=== PATIENT | male | born 1940 | race Caucasian/White ===

== ENCOUNTER 2017-11-15 01:42 | Observation (INO) ==
[2017-11-15] MEDS ORDERED: Nitroglycerin 0.4 MG TAB.SUBL SL PRN (01:51)
--- NOTE | 2017-11-15 01:54 | Emergency Department Note ---
Disposition Clinical Impression: Chest pain Qualifiers: Chest pain type: unspecified Qualified Code(s): R07.9 - Chest pain, unspecified Disposition: Admitted As Inpatient Condition: Undetermined Referrals: Tra Padron M.D. [Primary Care Provider] - Forms: ED Satisfaction Letter Time of Disposition: 03:01 Chest Pain HPI - General Chief Complaint: ED Chest Pain Stated Complaint: Chest Pain Time Seen by Provider: 11/15/17 01:43 Source: patient Mode of arrival: ambulatory Limitations: no limitations Vital Signs Reviewed: Yes Nursing Notes Reviewed: Yes - History of Present Illness HPI Narrative: 76-year-old male with history of CHF, atrial fibrillation, hyperlipidemia, arrives to the emergency department with retrosternal chest pain that woke him up from sleep roughly 2 hours ago. The patient states he took 2 nitroglycerin which she always carries around in his pocket and it did help relieve his pain. The patient denies any other complaints including shortness of breath, unilateral leg swelling, history of DVT or PE, recent surgeries or recent immobilizations. The patient states he has never had TN in the past. The patient's states that the pressure this evening was constant until he took his medication. He called in the 5 or 6 out of 10. Patient is resting comfortably in the room at this time. Severity scale (1-10): 4 - Related Data Home Medications Medication Instructions Recorded Confirmed Acetaminophen w/Cod 300-30 mg 1 each PO Q6HR PRN 01/07/16 05/28/16 [Tylenol w/Codeine #3] Aspirin Enteric Coated [Aspirin EC] 325 mg PO DAILY 01/07/16 05/28/16 Atorvastatin [Lipitor] 10 mg PO HS 01/07/16 05/28/16 Citalopram Hydrobromide 5 mg PO DAILY 01/07/16 05/28/16 [Citalopram HBr] Docusate [Colace] 200 mg PO DAILY 01/07/16 05/28/16 Ferrous Sulfate [Iron Supplement] 325 mg PO DAILY 01/07/16 05/28/16 Isosorbide DInitrate [Isosorbide 5 mg PO TID 01/07/16 05/28/16 Dinitrate] Lisinopril 10 mg PO BID 01/07/16 05/28/16 Nitroglycerin [Nitrostat] 0.4 mg SL AD PRN 01/07/16 05/28/16 Omeprazole [PriLOSEC] 20 mg PO DAILY 01/07/16 05/28/16 diazePAM [Valium] 5 mg PO 3-4XD 01/07/16 05/28/16 Cyanocobalamin (Vitamin B-12) 100 mcg PO DAILY 05/28/16 05/28/16 [Vitamin B-12] Previous Rx's Medication Instructions Recorded OxyCODONE/APAP 5/325 [Percocet 1 each PO Q6HR PRN #15 tablet 05/30/16 5/325 MG] Allergies Allergy/AdvReac Type Severity Reaction Status Date / Time No Known Allergies Allergy Verified 03/12/17 13:18 All systems ED: reviewed and negative except as stated. Constitutional: Denies: fever, chills ENT ED: Denies: congestion Cardiovascular: Reports: chest pain. Denies: palpitations, dyspnea on exertion , edema Respiratory: Denies: cough, dyspnea Gastrointestinal: Denies: abdominal pain, nausea, melena, hematochezia Musculoskeletal: Denies: back pain Integumentary: Denies: rash Neurological: Denies: headache Chest Pain PMH - Past Medical History Medical history: Reports: arthritis, atrial fibrillation, cardiomyopathy, CHF, GERD, hyperlipidemia, hypertension, liver disease Surgical history: Reports: cholecystectomy, other Psychiatric history: Reports: no psych history - Social History Smoking Status: Former smoker Alcohol use: Reports: none Drug use: Reports: none Physical Exam - General Limitations: no limitations General appearance: alert, in no apparent distress - Head Head exam: atraumatic, normocephalic, normal inspection - Eye Eye exam: Present: normal appearance, PERRL, EOMI - ENT ENT exam: normal exam, normal oropharynx, mucous membranes moist - Neck Neck exam: Present: normal inspection, full ROM, trachea midline - Chest Chest inspection: Present: normal inspection, symmetric chest wall rise - Respiratory Respiratory exam: Present: normal lung sounds bilaterally - Cardiovascular Cardiovascular exam: Present: regular rate, normal rhythm, normal heart sounds - Abdominal Exam Abdominal exam: Present: soft, Non-Tender, scar. Absent: tenderness, distention , guarding, rebound, rigidity, pulsatile mass - Extremities Exam Extremities exam: Present: normal inspection, full ROM. Absent: tenderness, pedal edema - Neurological Exam Neurological exam: Present: alert, oriented X3 - Skin Skin exam: Present: warm, dry, intact, normal color Course Vital Signs Temperature 97.9 F 11/15/17 01:44 Pulse Rate 90 11/15/17 01:44 Respiratory Rate 20 11/15/17 01:44 Blood Pressure 182/116 11/15/17 01:44 O2 Sat by Pulse Oximetry 95 11/15/17 01:44 Temperature 97.9 F 11/15/17 01:44 Pulse Rate 76 11/15/17 02:47 Respiratory Rate 18 11/15/17 02:47 Blood Pressure 148/100 11/15/17 02:47 O2 Sat by Pulse Oximetry 97 11/15/17 02:47 Oxygen Delivery Oxygen Delivery Nasal Cannula Chest Pain - MDM Narrative Medical decision making narrative: Workup in the emergency department demonstrates no acute process. The patient' s chest pain is controlled after receiving nitroglycerin. We will admit the patient to the hospital at this time for further workup and care. Patient made aware and agrees to plan. Accepted by Dr. Jim. - Lab Data Lab results reviewed: Yes I reviewed the patient's lab results. Result diagrams: 11/15/17 02:00 11/15/17 02:00 Lab Results 11/15/17 11/15/17 Range/Units 02:00 02:00 WBC 8.5 (4.3-11.1) K/mcL RBC 4.97 (4.19-5.50) M/mcL Hgb 15.4 (12.9-16.9) g/dL Hct 46.4 (37.5-50.1) % MCV 93.4 (83.0-100.0) fL MCH 31.0 (28.0-33.3) pg MCHC 33.2 (31.6-35.5) g/dL RDW 12.8 (11.5-14.5) % Plt Count 142 (140-400) K/mcL MPV 8.9 L (9.4-12.4) fL Immature Gran % 0.4 (0-4) % Seg Neutrophils % 64.3 % Lymphocytes % 24.3 % Monocytes % 8.3 % Eosinophils % 2.2 % Basophils % 0.5 % Neutrophils # 5.4 (1.6-8.9) K/mcL Lymphocytes # 2.1 (0.6-4.6) K/mcL Monocytes # 0.7 (0.0-1.3) K/mcL Eosinophils # 0.2 (0.0-0.6) K/mcL Basophils # 0.0 (0.0-0.2) K/mcL Sodium 138 (136-145) mEq/L Potassium 4.0 (3.5-5.1) mEq/L Chloride 105 (98-107) mEq/L Carbon Dioxide 27 (23-29) mEq/L BUN 16 (8-23) mg/dL Creatinine 0.90 (0.70-1.30) mg/dL Est GFR ( Amer) > 60 (> 60) Est GFR (Non-Af Amer) > 60 (> 60) BUN/Creatinine Ratio 18 (6-26) Glucose 110 H (70-105) mg/dL Calculated Osmolality 288 (280-300) Calcium 8.8 (8.6-10.3) mg/dL Troponin I < 0.03 (< 0.04) ng/mL - Radiology Data Radiology results reviewed: Yes I reviewed the patient's radiology results. Chest X-Ray 11/15/17 01:51 IMPRESSION: No acute process. D/ / Abimael Almazan MD / Abimael Almazan MD Interpreting Provider: Abimael Almazan MD - EKG Data EKG attestation: Yes I reviewed and interpreted this EKG. EKG results narrative: Heart rate [address] No [address] elevation or ST depression noted.
[2017-11-15 02:08] LABS: Basophils % 0.5 %; Eosinophils # 0.2 K/mcL (0.0-0.6); Eosinophils % 2.2 %; Hematocrit 46.4 % (37.5-50.1); Hemoglobin 15.4 g/dL (12.9-16.9); Immature Granulocytes % 0.4 % (0-4); Lymphocytes # 2.1 K/mcL (0.6-4.6); Lymphocytes % 24.3 %; Mean Corpuscular HGB Conc 33.2 g/dL (31.6-35.5); Mean Corpuscular Volume 93.4 fL (83.0-100.0); Mean Platelet Volume 8.9 fL (9.4-12.4); Monocytes # 0.7 K/mcL (0.0-1.3); Monocytes % 8.3 %; Neutrophils # 5.4 K/mcL (1.6-8.9); Platelet Count 142 K/mcL (140-400); Red Blood Count 4.97 M/mcL (4.19-5.50); Red Cell Distribution Width 12.8 % (11.5-14.5); Segmented Neutrophils % 64.3 %
--- NOTE | 2017-11-15 02:30 | Emergency Department Note ---
Disposition Clinical Impression: Chest pain Qualifiers: Chest pain type: unspecified Qualified Code(s): R07.9 - Chest pain, unspecified Disposition: Admitted As Inpatient Forms: ED Satisfaction Letter General Adult HPI - General Chief complaint: ED Chest Pain Stated complaint: Chest Pain Time Seen by Provider: 11/15/17 01:43 Source: patient Mode of arrival: ambulatory Limitations: no limitations - History of Present Illness Pain Scale: 4 - Related Data Home Medications Medication Instructions Recorded Confirmed Acetaminophen w/Cod 300-30 mg 1 each PO Q6HR PRN 01/07/16 05/28/16 [Tylenol w/Codeine #3] Aspirin Enteric Coated [Aspirin EC] 325 mg PO DAILY 01/07/16 05/28/16 Atorvastatin [Lipitor] 10 mg PO HS 01/07/16 05/28/16 Citalopram Hydrobromide 5 mg PO DAILY 01/07/16 05/28/16 [Citalopram HBr] Docusate [Colace] 200 mg PO DAILY 01/07/16 05/28/16 Ferrous Sulfate [Iron Supplement] 325 mg PO DAILY 01/07/16 05/28/16 Isosorbide DInitrate [Isosorbide 5 mg PO TID 01/07/16 05/28/16 Dinitrate] Lisinopril 10 mg PO BID 01/07/16 05/28/16 Nitroglycerin [Nitrostat] 0.4 mg SL AD PRN 01/07/16 05/28/16 Omeprazole [PriLOSEC] 20 mg PO DAILY 01/07/16 05/28/16 diazePAM [Valium] 5 mg PO 3-4XD 01/07/16 05/28/16 Cyanocobalamin (Vitamin B-12) 100 mcg PO DAILY 05/28/16 05/28/16 [Vitamin B-12] Previous Rx's Medication Instructions Recorded OxyCODONE/APAP 5/325 [Percocet 1 each PO Q6HR PRN #15 tablet 05/30/16 5/325 MG] Allergies Allergy/AdvReac Type Severity Reaction Status Date / Time No Known Allergies Allergy Verified 03/12/17 13:18 Constitutional: Denies: fever, chills ENT ED: Denies: congestion Cardiovascular: Reports: chest pain. Denies: palpitations, dyspnea on exertion , edema Respiratory: Denies: cough, dyspnea Gastrointestinal: Denies: abdominal pain, nausea, melena, hematochezia Musculoskeletal: Denies: back pain Integumentary: Denies: rash Neurological: Denies: headache Past Medical History - Past Medical History Medical history: Reports: arthritis, atrial fibrillation, cardiomyopathy, CHF, GERD, hyperlipidemia, hypertension, liver disease Surgical history: Reports: cholecystectomy, other Psychiatric history: Reports: no psych history - Social History Smoking Status: Former smoker Smokeless Tobacco Status: No Alcohol use: Reports: none Drug use: Reports: none Physical Exam - General Limitations: no limitations General appearance: alert, in no apparent distress Course Vital Signs Temperature 97.9 F 11/15/17 01:44 Pulse Rate 90 11/15/17 01:44 Respiratory Rate 20 11/15/17 01:44 Blood Pressure 182/116 11/15/17 01:44 O2 Sat by Pulse Oximetry 95 11/15/17 01:44 Temperature 97.9 F 11/15/17 01:44 Pulse Rate 90 11/15/17 01:44 Respiratory Rate 20 11/15/17 01:44 Blood Pressure 182/116 11/15/17 01:44 O2 Sat by Pulse Oximetry 95 11/15/17 01:44 Oxygen Delivery Oxygen Delivery Room Air Medical Decision Making - Lab Data Result diagrams: 11/15/17 02:00 Lab Results 11/15/17 Range/Units 02:00 WBC 8.5 (4.3-11.1) K/mcL RBC 4.97 (4.19-5.50) M/mcL Hgb 15.4 (12.9-16.9) g/dL Hct 46.4 (37.5-50.1) % MCV 93.4 (83.0-100.0) fL MCH 31.0 (28.0-33.3) pg MCHC 33.2 (31.6-35.5) g/dL RDW 12.8 (11.5-14.5) % Plt Count 142 (140-400) K/mcL MPV 8.9 L (9.4-12.4) fL Immature Gran % 0.4 (0-4) % Seg Neutrophils % 64.3 % Lymphocytes % 24.3 % Monocytes % 8.3 % Eosinophils % 2.2 % Basophils % 0.5 % Neutrophils # 5.4 (1.6-8.9) K/mcL Lymphocytes # 2.1 (0.6-4.6) K/mcL Monocytes # 0.7 (0.0-1.3) K/mcL Eosinophils # 0.2 (0.0-0.6) K/mcL Basophils # 0.0 (0.0-0.2) K/mcL Attestation Statement - Attestation Attestation: I examined this patient and my medical decision-making was reviewed with the Resident Physician. I agree with the documented findings, disposition and treatment plan as described except to the extent set forth below. 76 year old male presents to the ED with complaints of chest pain and has history of blockage x 1 which was evaluted over 5 years ago with other risk factors for unstable agina. We will do cardiopulonary workup and then admit pelon floyd. He states that he took nitro before arrival and that it helped with his pain.
[2017-11-15 02:32] LABS: BUN/Creatinine Ratio 18 (6-26); Blood Urea Nitrogen 16 mg/dL (8-23); Calcium 8.8 mg/dL (8.6-10.3); Carbon Dioxide 27 mEq/L (23-29); Chloride 105 mEq/L (98-107); Glucose 110 mg/dL (70-105); Osmolality,Calculated 288 (280-300); Sodium 138 mEq/L (136-145); Troponin I < 0.03 ng/mL (< 0.04); eGFR For African Americans > 60 (> 60); eGFR For Non-African Americans > 60 (> 60)
[2017-11-15] MEDS ORDERED: Acetaminophen 325 MG TABLET PO PRN (03:04)
[2017-11-15] MEDS ORDERED: Naloxone 0.4 MG/ML INJ IVP PRN (03:04)
--- NOTE | 2017-11-15 03:12 | Internal Med History&Physical ---
Date of Encounter: 11/15/17 Time of Encounter: 03:07 Internal Medicine - H&P: HPI Chief complaint: chest pain Admitted From: Emergency Dept Plans for Post Hospital Care: Home History of present illness: Mr. Dowling is a 76 year old male with a past medical history of CAD, TIA, peripheral vascular disease, A. fib not on anticoagulation due to history of severe GI bleed presents with CP that started around midnight and woke him up from sleep. Feels pressure like 5/10 with no radiation. Took 2 nitro from home and helped relieve the pain. Reports diaphoresis during episode and mild shortness of breath. Resolved in 20 minutes or so. EKG showed afib but no new ST or T wave changes. Take ASA 325 mg at home. Denies fever, blurry vision, headache, chills, nausea, vomiting, abdominal pain, diarrhea, constipation, urinary symptoms, or neurological symptoms. Workup in the ED other than the EKG was mostly unremarkable with troponin is not elevated. Had a LHC 2016 showing mild three vessel disease and LVEF of 55% and was recommended medical therapy. Per documentations had 2 stress tests in [id number] that were negative. Past Med Surg Social Fam HX - Past Medical History Medical history: arthritis, atrial fibrillation, cardiomyopathy, CHF, GERD, hyperlipidemia, hypertension, liver disease Psychiatric history: no psych history - Past Surgical History Surgical History: cholecystectomy, other - Social History Smoking Status: Former smoker Smokeless Tobacco Status: No Alcohol use: none Drug use: none - Family History Mother Hx Family Cardiac Disorders: Yes (previous NE) Internal Medicine - H&P: Meds Acetaminophen w/Cod 300-30 mg [Tylenol w/Codeine #3] 1 each PO Q6HR PRN [History] Aspirin Enteric Coated [Aspirin EC] 325 mg PO DAILY 01/07/16 [History] Atorvastatin [Lipitor] 10 mg PO HS 01/07/16 [History] Citalopram Hydrobromide [Citalopram HBr] 5 mg PO DAILY 01/07/16 [History] Docusate [Colace] 200 mg PO DAILY 01/07/16 [History] Ferrous Sulfate [Iron Supplement] 325 mg PO DAILY 01/07/16 [History] Isosorbide DInitrate [Isosorbide Dinitrate] 5 mg PO TID 01/07/16 [History] Lisinopril 10 mg PO BID 01/07/16 [History] Nitroglycerin [Nitrostat] 0.4 mg SL AD PRN 01/07/16 [History] Omeprazole [PriLOSEC] 20 mg PO DAILY 01/07/16 [History] diazePAM [Valium] 5 mg PO 3-4XD 01/07/16 [History] Cyanocobalamin (Vitamin B-12) [Vitamin B-12] 100 mcg PO DAILY 05/28/16 [History] OxyCODONE/APAP 5/325 [Percocet 5/325 MG] 1 each PO Q6HR PRN #15 tablet 05/30/16 [Rx] 3 Allergy/AdvReac Type Severity Reaction Status Date / Time No Known Allergies Allergy Verified 03/12/17 13:18 All Systems PM: A 10-system review of systems was performed and is negative for pertinent findings except as documented above in the HPI. Review of systems: All systems reviewed are negative except for as mentioned above - Constitutional Vitals: Temp Pulse Resp BP Pulse Ox 97.9 F 76 18 148/100 97 11/15/17 01:44 11/15/17 02:47 11/15/17 02:47 11/15/17 02:47 11/15/17 02:47 Exam: GEN: NAD HEENT: AT, NC, No cyanosis, oral mucosa is moist, No JVD Lymphatics: No lymphadenoapthy Eyes: Extrocular muscles intact, anicteric CVS:RRR. S1, S2, No m/r/g RESP: CTAB ABD: Soft, NT, ND, +BS EXT: No edema, No rashes, 2+ DP NEURO: Nonfocal, CN II-XII intact, No focal motor or sensory deficits Psych: Cooperative, Not anxious or depressed Internal Med - H&P Results - Labs CBC & Chem 7: 11/15/17 02:00 11/15/17 02:00 - Assessment and plan (1) Chest pain Current Visit: Yes Status: Acute Assessment and plan: Admit to telemetry. Nothing by mouth. Stress test in the morning. Trend cardiac enzymes. Sublingual nitroglycerin when necessary. Check lipid panel and A1c. Qualifiers: Chest pain type: unspecified Qualified Code(s): R07.9 - Chest pain, unspecified (2) Atrial fibrillation Current Visit: No Status: Acute Assessment and plan: Not on anticoagulation due to history of GI bleed on Coumadin. Continue aspirin. Rate controlled. Qualifiers: Atrial fibrillation type: chronic Qualified Code(s): I48.2 - Chronic atrial fibrillation (3) CAD (coronary artery disease) Current Visit: No Status: Acute Assessment and plan: Continue home cardiac meds. Qualifiers: Coronary Disease-Associated Artery/Lesion type: [place] artery [place] vs. transplanted heart: [place] heart Associated angina: without angina Qualified Code(s): I25.10 - Atherosclerotic heart disease of [place] coronary artery without angina pectoris (4) DVT prophylaxis Current Visit: Yes Status: Acute Assessment and plan: Heparin subcutaneous - Time Spent With Patient Total time spent is greater than 50% in coordination of care (as documented) at patient's floor/unit and/or counseling patient:
[2017-11-15 04:24] LABS: Chol/HDL Ratio 3.5 (0-4.9)
[2017-11-15] MEDS ORDERED: Regadenoson 0.4 MG/5 ML SYRINGE IVP ONE (05:33)
[2017-11-15] MEDS: *HR* Heparin 5,000 UNIT/ML VIAL SQ SCH ×2 (06:06→16:25)
[2017-11-15 09:29] LABS: Estimated Average Glucose 126 mg/dl
[2017-11-15 15:41] VITALS: BP 136/81
--- NOTE | 2017-11-15 16:21 | Electrocardiograph Report ---
[address] [place] [address] Test Date: 2017-11-15 Pat Name: Matt Dowling Department: 103 Room: 3B13 Gender: M [employer]er Tender: : 1940 Requested By: Rod Allen Order Number: [id number] Reading MD: Rogerio Meeks Measurements Intervals Leonore Rate: 86 P: [place]: 0 QRS: -63 QRSD: 109 T: 63 QT: 379 QTc: 422 Interpretive Statements ATRIAL FIBRILLATION LEFT ANTERIOR FASCICULAR BLOCK MINIMAL ST DEPRESSION Electronically Signed On 11-15-2017 16:19:43 EDT by Rogerio Meeks
--- NOTE | 2017-11-15 16:43 | Internal Med Progress Note ---
Date of Encounter: 11/15/17 Time of Encounter: 16:41 - Assessment and plan (1) Chest pain Current Visit: Yes Status: Acute Assessment and plan: No longer having chest pain. Troponins negative 3. No EKG changes, ST elevations or depressions noted. Stress test today negative for ischemia. Patient is requesting to discharge home. He was advised to be beneficial to stay for cardiology consultation however, he continues to request discharge home. He has been told to return to the ED should chest pain or shortness of breath return. Continue cardiac medications on discharge Follow-up with PCP in one week Qualifiers: Chest pain type: unspecified Qualified Code(s): R07.9 - Chest pain, unspecified (2) Atrial fibrillation Current Visit: Yes Status: Acute Assessment and plan: Not on anticoagulation due to history of GI bleed on Coumadin. Continue aspirin 325 mg daily at home dose. He is currently Rate controlled. Continue to monitor Qualifiers: Atrial fibrillation type: chronic Qualified Code(s): I48.2 - Chronic atrial fibrillation (3) CAD (coronary artery disease) Current Visit: No Status: Acute Assessment and plan: Continue aspirin, statins, anti-HTN medications Qualifiers: Coronary Disease-Associated Artery/Lesion type: [place] artery [place] vs. transplanted heart: [place] heart Associated angina: without angina Qualified Code(s): I25.10 - Atherosclerotic heart disease of [place] coronary artery without angina pectoris (4) DVT prophylaxis Current Visit: Yes Status: Acute Assessment and plan: Heparin subcutaneous - Time Spent With Patient Total time spent is greater than 50% in coordination of care (as documented) at patient's floor/unit and/or counseling patient: Greater than 35 minutes - Subjective Interval history: Presented overnight with chest pain, no EKG changes, initial troponin negative. Had a stress test this afternoon found to be negative for ischemia, additional follow-up troponins were found to be negative. Chest x-ray is unremarkable. She denies having any current chest pain. No exertional dyspnea or chest pain noted. He is requesting to discharge home. He is stating that he cannot stay tonight as he has to get his spouse home so that she can rest. - Constitutional Vitals: Temp Pulse Resp BP Pulse Ox 97.8 F 97 18 136/81 95 11/15/17 15:40 11/15/17 15:40 11/15/17 15:40 11/15/17 15:40 11/15/17 15:40 General appearance: Present: cooperative, A&O X 3, no acute distress, answers questions appropriately - Head Head exam: Present: atraumatic, normocephalic - Eye Eye exam: Present: PERRL, conjuntiva pink, sclera anicteric Pupils: Present: PERRL - Neck Neck exam general surgery: Present: supple, trachea midline. Absent: lymphadenopathy - Respiratory Respiratory exam: Present: CTAB. Absent: accessory muscle use, rales, rhonchi, wheezes - Cardiovascular Cardiovascular exam: Present: irregular rhythm, +S1, +S2. Absent: diastolic murmur, gallop, rubs, systolic murmur, tachycardia - GI/Abdominal GI/Abdominal exam: Present: normal bowel sounds, soft, no peritoneal signs. Absent: distended, tenderness - Extremities Exam Extremities exam: Present: warm, radial pulses palpable and symmetrical. Absent : calf tenderness, cyanotic, pedal edema - Neurological Exam Neurological exam: Present: CN II-XII intact, oriented X3, no focal deficits. Absent: pronater drift, facial droop, speech deficit - Skin Skin exam: Present: dry, intact Internal Medicine: Result - Labs CBC & Chem 7: 11/15/17 02:00 11/15/17 02:00 Labs: Cardiac Enzymes 11/15/17 Range/Units 08:21 Troponin I < 0.03 (< 0.04) ng/mL - Impressions Impressions Chest X-Ray 11/15/17 01:51 IMPRESSION: No acute process. D/ / 11/15/2017 07:52:45 Abimael Almazan MD / brannon Interpreting Provider: Abimael Almazan MD Consult Discharge Plan - Plan Referrals: Tra Padron M.D. [Primary Care Provider] - 11/24/17 10:00 am
--- NOTE | 2017-11-15 16:51 | Discharge Summary ---
- NOTES TO OUTPATIENT PROVIDER Notes to Outpatient Provider: Patient was admitted for chest pain rule out. Upon admission there were no EKG changes, ST elevation or depression noted. Troponins negative 3, stress test negative for ischemia. No chest pain reported at time of discharge, patient resting comfortably in no distress. Vital signs remained stable. Continue to optimize medical therapy. Consider outpatient appointment with cardiology as needed. The patient has been instructed to return to the ED should chest pain and/or shortness of breath return. Orders not resulted at time of discharge: Pending orders 11/15/17 06:00 NM kera perf SPECT multi [NM] AM 0600 Date of Encounter: 11/15/17 Time of Encounter: 16:49 - Discharge Diagnosis (1) Chest pain Priority: Primary Status: Acute Assessment and Plan: No longer having chest pain. Troponins negative 3. No EKG changes, ST elevations or depressions noted. Stress test today negative for ischemia. Patient is requesting to discharge home. He was advised to be beneficial to stay for cardiology consultation however, he continues to request discharge home. He has been told to return to the ED should chest pain or shortness of breath return. Continue cardiac medications on discharge Follow-up with PCP in one week Qualifiers: Chest pain type: unspecified Qualified Code(s): R07.9 - Chest pain, unspecified (2) Atrial fibrillation Priority: Secondary Status: Acute Assessment and Plan: Not on anticoagulation due to history of GI bleed on Coumadin. Continue aspirin 325 mg daily at home dose. He is currently Rate controlled. Continue to monitor Qualifiers: Atrial fibrillation type: chronic Qualified Code(s): I48.2 - Chronic atrial fibrillation (3) CAD (coronary artery disease) Priority: Secondary Status: Acute Assessment and Plan: Continue aspirin, statins, anti-HTN medications Qualifiers: Coronary Disease-Associated Artery/Lesion type: [place] artery [place] vs. transplanted heart: [place] heart Associated angina: without angina Qualified Code(s): I25.10 - Atherosclerotic heart disease of [place] coronary artery without angina pectoris (4) DVT prophylaxis Priority: Secondary Status: Acute Hospital course: Mr. Dowling is a 76 year old male who presents for chest pain rule out. His EKG was found to be negative for ST elevation, depression or T-wave inversion. Stress test negative for ischemia, troponins negative 3. Currently denying any chest pain at this time and requesting to go home. He was informed that it would be beneficial for him to stay for further evaluation and a cardiac consult however, the patient continues to request to go home. Vital signs are stable and and he is in no distress. The patient has been informed to return to the ED if chest pain and/or shortness of breath returns. He is instructed to follow-up with his primary care provider. Discharge discussed with: patient, family, nurse - Time Spent with Patient Total time spent providing and/or coordinating discharge services: Greater than 30 minutes - Discharge Medications Prescriptions: Nitroglycerin 0.4 mg SL Q5MIN PRN 30 Days #1 tab.subl PRN Reason: Chest Pain Home Medications: Acetaminophen w/Cod 300-30 mg [Tylenol w/Codeine #3] 1 each PO Q6HR PRN [History] Aspirin Enteric Coated [Aspirin EC] 325 mg PO DAILY 01/07/16 [History] Atorvastatin [Lipitor] 10 mg PO HS 01/07/16 [History] Citalopram Hydrobromide [Citalopram HBr] 5 mg PO DAILY 01/07/16 [History] Docusate [Colace] 200 mg PO DAILY 01/07/16 [History] Ferrous Sulfate [Iron Supplement] 325 mg PO DAILY 01/07/16 [History] Isosorbide DInitrate [Isosorbide Dinitrate] 5 mg PO TID 01/07/16 [History] Lisinopril 10 mg PO BID 01/07/16 [History] Nitroglycerin [Nitrostat] 0.4 mg SL AD PRN 01/07/16 [History] Omeprazole [PriLOSEC] 20 mg PO DAILY 01/07/16 [History] diazePAM [Valium] 5 mg PO 3-4XD 01/07/16 [History] Cyanocobalamin (Vitamin B-12) [Vitamin B-12] 100 mcg PO DAILY 05/28/16 [History] Nitroglycerin 0.4 mg SL Q5MIN PRN 30 Days #1 tab.subl 11/15/17 [Rx] Allergies/Adverse Reactions: 3 Allergy/AdvReac Type Severity Reaction Status Date / Time No Known Allergies Allergy Verified 11/15/17 08:49 Date of admission: 11/15/17 03:04 Primary care physician: Tra Padron M.D. Discharging clinician: Alin Schmitz Anticipated date of discharge: 11/15/17 - Constitutional Vitals: Temp Pulse Resp BP Pulse Ox 97.8 F 97 18 136/81 95 11/15/17 15:40 11/15/17 15:40 11/15/17 15:40 11/15/17 15:40 11/15/17 15:40 General appearance: Present: cooperative, A&O X 3, no acute distress, answers questions appropriately - Head Head exam: Present: atraumatic, normocephalic - Eye Eye exam: Present: PERRL, conjuntiva pink, sclera anicteric Pupils: Present: PERRL - Neck Neck exam general surgery: Present: supple, trachea midline. Absent: lymphadenopathy - Respiratory Respiratory exam: Present: CTAB. Absent: accessory muscle use, rales, rhonchi, wheezes - Cardiovascular Cardiovascular exam: Present: RRR, +S1, +S2. Absent: diastolic murmur, gallop, rubs, systolic murmur - GI/Abdominal GI/Abdominal exam: Present: normal bowel sounds, soft, no peritoneal signs. Absent: distended, tenderness - Extremities Exam Extremities exam: Present: warm, radial pulses palpable and symmetrical. Absent : calf tenderness, cyanotic, pedal edema - Neurological Exam Neurological exam: Present: CN II-XII intact, oriented X3, no focal deficits. Absent: pronater drift, facial droop, speech deficit - Skin Skin exam: Present: dry, intact - Patient Status Disposition: Home, Self-Care Condition: Good Functional capacity at discharge: independent ambulation Overall status at discharge: patient is back to baseline - Discharge Instructions Follow Up With: Tra Padron M.D. [Primary Care Provider] - 11/24/17 10:00 am
== END 2017-11-15 17:29 | disposition home or self-care (01) ==
LOC: EMEROO 01:42 → 3BNU 01:42
PROVIDERS: ADMIT Internal Medicine; ATTEND Internal Medicine

== ENCOUNTER 2018-11-03 08:03 | Observation (INO) ==
--- NOTE | 2018-11-03 08:34 | Emergency Department Note ---
Disposition Clinical Impression: Hematochezia Disposition: Admitted As Inpatient Condition: Fair Time of Disposition: 10:15 GI Bleed HPI - General Chief complaint: ED GI Bleed Stated complaint: rectal bleeding Time Seen by Provider: 11/03/18 08:09 Source: patient Limitations: no limitations Nursing Notes Reviewed: Yes Vital Signs Reviewed: Yes - History of Present Illness HPI Narrative: Mr. Dowling is a 77M who presents today complaining of bright red blood per rectum. He reports that at approximately 6:00 this morning he awoke and felt the urge to have a bowel movement. Reports he went to the restroom and had a large bright red bloody bowel movement. He denies any syncope, dizziness, or lightheadedness. Denies any nausea, vomiting, fever, or chills. He does report that he had a GI bleed in June 2018. He reports at that time he underwent EGD and colonoscopy, during which a "vessel in my stomach was repaired". Denies any diarrhea, hematochezia, or melena prior to this morning's event. Denies any recent illnesses. No chest pain, or shortness of breath. - Related Data Home Medications Medication Instructions Recorded Confirmed RX: Acetaminophen w/Cod 300-30 mg 1 each PO Q6HR PRN 01/07/16 11/03/18 [Tylenol w/Codeine #3] RX: Aspirin Enteric Coated 325 mg PO DAILY 01/07/16 11/03/18 [Aspirin EC] RX: Atorvastatin [Lipitor] 10 mg PO HS 01/07/16 11/03/18 RX: Citalopram Hydrobromide 5 mg PO DAILY 01/07/16 11/03/18 [Citalopram HBr] RX: Docusate [Colace] 200 mg PO DAILY 01/07/16 11/03/18 RX: Ferrous Sulfate [Iron 325 mg PO DAILY 01/07/16 11/03/18 Supplement] RX: Isosorbide DInitrate 5 mg PO TID 01/07/16 11/03/18 [Isosorbide Dinitrate] RX: Lisinopril 10 mg PO BID 01/07/16 11/03/18 RX: Nitroglycerin [Nitrostat] 0.4 mg SL AD PRN 01/07/16 11/03/18 RX: Omeprazole [PriLOSEC] 20 mg PO DAILY 01/07/16 11/03/18 RX: diazePAM [Valium] 5 mg PO 3-4XD 01/07/16 11/03/18 RX: Cyanocobalamin (Vitamin B-12) 100 mcg PO DAILY 05/28/16 11/03/18 [Vitamin B-12] Previous Rx's Medication Instructions Recorded RX: Nitroglycerin 0.4 mg SL Q5MIN PRN 30 Days #1 11/15/17 tab.subl Allergies Allergy/AdvReac Type Severity Reaction Status Date / Time No Known Allergies Allergy Verified 11/15/17 08:49 All systems ED: reviewed and negative except as stated. Review of Systems: As Per HPI Constitutional: Denies: fever, chills, weakness Cardiovascular: Denies: chest pain, edema Respiratory: Denies: cough, dyspnea, wheezes Gastrointestinal: Reports: hematochezia. Denies: abdominal pain, nausea, vom iting, hematemesis, melena Genitourinary: Denies: dysuria, hematuria Past Medical History - Past Medical History Attestation: Yes The following information was validated with the patient. Source: patient, old records reviewed, nursing notes reviewed Medical history: Reports: arthritis, atrial fibrillation, cardiomyopathy, CHF, GERD, GI bleed, hyperlipidemia, hypertension, liver disease Surgical history: Reports: cholecystectomy, other Psychiatric history: Reports: no psych history - Social History Smoking Status: Former smoker Smokeless Tobacco Status: No Alcohol use: Reports: none Drug use: Reports: none Physical Exam - General Limitations: no limitations General appearance: alert, in no apparent distress - Head Head exam: atraumatic, normocephalic, normal inspection - Eye Eye exam: Present: normal appearance, PERRL, EOMI. Absent: scleral icterus - Chest Chest inspection: Present: normal inspection, symmetric chest wall rise. Absent: tenderness - Respiratory Respiratory exam: Present: normal lung sounds bilaterally. Absent: respiratory distress, wheezes, accessory muscle use - Cardiovascular Cardiovascular exam: Present: regular rate, normal rhythm, normal heart sounds, +S1, +S2 - Abdominal Exam Abdominal exam: Present: soft. Absent: distention, guarding, rebound, rigidity Abdominal tenderness: Present: RUQ, epigastrium, mild (pt reports as chronic and at his baseline ) - Rectal Exam Rectal exam: Present: normal inspection, normal rectal tone, heme (+) stool. Absent: fecal impaction, hemorrhoids - Extremities Exam Extremities exam: Present: normal inspection, full ROM. Absent: tenderness, pedal edema, calf tenderness - Neurological Exam Neurological exam: Present: alert, oriented X3 - Skin Skin exam: Present: warm, dry, intact, normal color. Absent: cyanosis, erythema, pallor Course Course Narrative: Initial history and physical exam revealed concern for GI bleed, hemorrhoids, or anal fissure. Initial evaluation including CBC, BMP, lactic acid, and type and screen. EKG was also obtained. Patient attempted to have bowel movement to provide a stool sample, however he was unable to. Digital rectal exam revealed Hemoccult positive stool, with no evidence of external or internal hemorrhoids. No fissures palpated. Vital signs remained stable. Hemoglobin was normal at 13.1. Remainder of labs were grossly unremarkable. Recommend patient be admitted for possible GI bleed, with recent history of GI b leed in June 2018. Discussed case with Dr. Palomares, hospitalist, who accepted the patient for admission. Also discussed case with Tra Angel CNP, of the GI team who recommended contacting the weekend GI bleed team. - Reevaluation(s) Reevaluation #1: Pt has no new complaints at this time. Discussed lab results. Pt reports he needs to have a bowel movement, will obtain occult stool from sample. Notified [employer]. Time: 09:21 Reevaluation #2: Patient reports he was unable to have a bowel movement, but reports "pressure" like he needs to go. Patient presented to rectal exam this time. Patient's remained in the room with fulguration. No external hemorrhoids visualized. No internal hemorrhoids or fissures were palpated during exam. Some bright red blood with small clot was seen with stool. Time: 09:55 - Consultations Consultation #1: Pt's case discussed with hospitalist, Dr Palomares, who accepted the patient for admission. Time: 10:10 Consultation #2: Spoke with Tra Angel CNP, from GI who stated Dr. Abdullahi recommends consulted weekend coverage for possible scope as their schedule is full. Time: 10:37 Vital Signs Temperature 97.5 F L 11/03/18 08:04 Pulse Rate 70 11/03/18 08:04 Respiratory Rate 18 11/03/18 08:04 Blood Pressure 159/94 11/03/18 08:04 O2 Sat by Pulse Oximetry 96 11/03/18 08:04 Temperature 97.4 F L 11/03/18 11:38 Pulse Rate 57 11/03/18 11:38 Respiratory Rate 16 11/03/18 11:38 Blood Pressure 146/89 11/03/18 11:38 O2 Sat by Pulse Oximetry 91 11/03/18 11:38 Oxygen Delivery Oxygen Delivery Room Air GI Bleed - Medical Records Medical records reviewed: Yes I reviewed the patient's medical records. - Lab Data Lab results reviewed: Yes I reviewed the patient's lab results. Result diagrams: 11/03/18 11:52 11/03/18 08:38 Lab Results 11/03/18 11/03/18 11/03/18 Range/Units 08:38 08:38 08:38 WBC 6.8 (4.3-11.1) K/mcL RBC 4.36 (4.19-5.50) M/mcL Hgb 13.3 (12.9-16.9) g/dL Hct 41.2 (37.5-50.1) % MCV 94.5 (83.0-100.0) fL MCH 30.5 (28.0-33.3) pg MCHC 32.3 (31.6-35.5) g/dL RDW 12.5 (11.5-14.5) % Plt Count 158 (140-400) K/mcL MPV 9.0 L (9.4-12.4) fL Immature Gran % 0.3 (0-4) % Seg Neutrophils % 67.5 % Lymphocytes % 20.4 % Monocytes % 8.8 % Eosinophils % 2.3 % Basophils % 0.7 % Neutrophils # 4.6 (1.6-8.9) K/mcL Lymphocytes # 1.4 (0.6-4.6) K/mcL Monocytes # 0.6 (0.0-1.3) K/mcL Eosinophils # 0.2 (0.0-0.6) K/mcL Basophils # 0.1 (0.0-0.2) K/mcL Sodium 140 (136-145) mEq/L Potassium 4.1 (3.5-5.1) mEq/L Chloride 107 (98-107) mEq/L Carbon Dioxide 28 (23-29) mEq/L BUN 14 (8-23) mg/dL Creatinine 0.78 (0.70-1.30) mg/dL Est GFR ( Amer) > 60 (> 60) Est GFR (Non-Af Amer) > 60 (> 60) BUN/Creatinine Ratio 18 (6-26) Glucose 106 H (70-105) mg/dL Calculated Osmolality 291 (280-300) Lactic Acid 0.9 (0.5-2.2) mmol/L Calcium 8.7 (8.6-10.3) mg/dL Stool Occult Bld Scrn (Negative) Blood Type Antibody Screen 11/03/18 11/03/18 Range/Units 08:38 09:45 WBC (4.3-11.1) K/mcL RBC (4.19-5.50) M/mcL Hgb (12.9-16.9) g/dL Hct (37.5-50.1) % MCV (83.0-100.0) fL MCH (28.0-33.3) pg MCHC (31.6-35.5) g/dL RDW (11.5-14.5) % Plt Count (140-400) K/mcL MPV (9.4-12.4) fL Immature Gran % (0-4) % Seg Neutrophils % % Lymphocytes % % Monocytes % % Eosinophils % % Basophils % % Neutrophils # (1.6-8.9) K/mcL Lymphocytes # (0.6-4.6) K/mcL Monocytes # (0.0-1.3) K/mcL Eosinophils # (0.0-0.6) K/mcL Basophils # (0.0-0.2) K/mcL Sodium (136-145) mEq/L Potassium (3.5-5.1) mEq/L Chloride (98-107) mEq/L Carbon Dioxide (23-29) mEq/L BUN (8-23) mg/dL Creatinine (0.70-1.30) mg/dL Est GFR ( Amer) (> 60) Est GFR (Non-Af Amer) (> 60) BUN/Creatinine Ratio (6-26) Glucose (70-105) mg/dL Calculated Osmolality (280-300) Lactic Acid (0.5-2.2) mmol/L Calcium (8.6-10.3) mg/dL Stool Occult Bld Scrn Positive A (Negative) Blood Type O POSITIVE Antibody Screen NEGATIVE - EKG Data EKG attestation: Yes I reviewed and interpreted this EKG. Rhythm: A.Fib [place]/QRS: left axis deviation When compared to previous EKG there are: no significant changes
--- NOTE | 2018-11-03 08:45 | Emergency Department Note ---
Disposition Clinical Impression: Hematochezia Disposition: Admitted As Inpatient Condition: Fair General Adult HPI - General Chief complaint: ED GI Bleed Stated complaint: rectal bleeding Time Seen by Provider: 11/03/18 08:09 Source: patient Limitations: no limitations - History of Present Illness Pain Scale: 4 - Related Data Home Medications Medication Instructions Recorded Confirmed Acetaminophen w/Cod 300-30 mg 1 each PO Q6HR PRN 01/07/16 11/03/18 [Tylenol w/Codeine #3] Aspirin Enteric Coated [Aspirin EC] 325 mg PO DAILY 01/07/16 11/03/18 Atorvastatin [Lipitor] 10 mg PO HS 01/07/16 11/03/18 Citalopram Hydrobromide 5 mg PO DAILY 01/07/16 11/03/18 [Citalopram HBr] Docusate [Colace] 200 mg PO DAILY 01/07/16 11/03/18 Ferrous Sulfate [Iron Supplement] 325 mg PO DAILY 01/07/16 11/03/18 Isosorbide DInitrate [Isosorbide 5 mg PO TID 01/07/16 11/03/18 Dinitrate] Lisinopril 10 mg PO BID 01/07/16 11/03/18 Nitroglycerin [Nitrostat] 0.4 mg SL AD PRN 01/07/16 11/03/18 Omeprazole [PriLOSEC] 20 mg PO DAILY 01/07/16 11/03/18 diazePAM [Valium] 5 mg PO 3-4XD 01/07/16 11/03/18 Cyanocobalamin (Vitamin B-12) 100 mcg PO DAILY 05/28/16 11/03/18 [Vitamin B-12] Previous Rx's Medication Instructions Recorded Nitroglycerin 0.4 mg SL Q5MIN PRN 30 Days #1 11/15/17 tab.subl Allergies Allergy/AdvReac Type Severity Reaction Status Date / Time No Known Allergies Allergy Verified 11/15/17 08:49 Constitutional: Denies: fever, chills, weakness Cardiovascular: Denies: chest pain, edema Respiratory: Denies: cough, dyspnea, wheezes Gastrointestinal: Reports: hematochezia. Denies: abdominal pain, nausea, vomiting, hematemesis, melena Genitourinary: Denies: dysuria, hematuria Past Medical History - Past Medical History Medical history: Reports: arthritis, atrial fibrillation, cardiomyopathy, CHF, GERD, GI bleed, hyperlipidemia, hypertension, liver disease Surgical history: Reports: cholecystectomy, other Psychiatric history: Reports: no psych history - Social History Smoking Status: Former smoker Smokeless Tobacco Status: No Alcohol use: Reports: none Drug use: Reports: none Physical Exam - General Limitations: no limitations General appearance: alert, in no apparent distress Course Vital Signs Temperature 97.5 F L 11/03/18 08:04 Pulse Rate 70 11/03/18 08:04 Respiratory Rate 18 11/03/18 08:04 Blood Pressure 159/94 11/03/18 08:04 O2 Sat by Pulse Oximetry 96 11/03/18 08:04 Temperature 97.4 F L 11/03/18 11:38 Pulse Rate 57 11/03/18 11:38 Respiratory Rate 16 11/03/18 11:38 Blood Pressure 146/89 11/03/18 11:38 O2 Sat by Pulse Oximetry 91 11/03/18 11:38 Oxygen Delivery Oxygen Delivery Room Air Medical Decision Making - Lab Data Result diagrams: 11/03/18 11:52 11/03/18 08:38 Lab Results 11/03/18 11/03/18 11/03/18 Range/Units 08:38 08:38 08:38 WBC 6.8 (4.3-11.1) K/mcL RBC 4.36 (4.19-5.50) M/mcL Hgb 13.3 (12.9-16.9) g/dL Hct 41.2 (37.5-50.1) % MCV 94.5 (83.0-100.0) fL MCH 30.5 (28.0-33.3) pg MCHC 32.3 (31.6-35.5) g/dL RDW 12.5 (11.5-14.5) % Plt Count 158 (140-400) K/mcL MPV 9.0 L (9.4-12.4) fL Immature Gran % 0.3 (0-4) % Seg Neutrophils % 67.5 % Lymphocytes % 20.4 % Monocytes % 8.8 % Eosinophils % 2.3 % Basophils % 0.7 % Neutrophils # 4.6 (1.6-8.9) K/mcL Lymphocytes # 1.4 (0.6-4.6) K/mcL Monocytes # 0.6 (0.0-1.3) K/mcL Eosinophils # 0.2 (0.0-0.6) K/mcL Basophils # 0.1 (0.0-0.2) K/mcL Sodium 140 (136-145) mEq/L Potassium 4.1 (3.5-5.1) mEq/L Chloride 107 (98-107) mEq/L Carbon Dioxide 28 (23-29) mEq/L BUN 14 (8-23) mg/dL Creatinine 0.78 (0.70-1.30) mg/dL Est GFR ( Amer) > 60 (> 60) Est GFR (Non-Af Amer) > 60 (> 60) BUN/Creatinine Ratio 18 (6-26) Glucose 106 H (70-105) mg/dL Calculated Osmolality 291 (280-300) Lactic Acid 0.9 (0.5-2.2) mmol/L Calcium 8.7 (8.6-10.3) mg/dL Stool Occult Bld Scrn (Negative) Blood Type Antibody Screen 11/03/18 11/03/18 Range/Units 08:38 09:45 WBC (4.3-11.1) K/mcL RBC (4.19-5.50) M/mcL Hgb (12.9-16.9) g/dL Hct (37.5-50.1) % MCV (83.0-100.0) fL MCH (28.0-33.3) pg MCHC (31.6-35.5) g/dL RDW (11.5-14.5) % Plt Count (140-400) K/mcL MPV (9.4-12.4) fL Immature Gran % (0-4) % Seg Neutrophils % % Lymphocytes % % Monocytes % % Eosinophils % % Basophils % % Neutrophils # (1.6-8.9) K/mcL Lymphocytes # (0.6-4.6) K/mcL Monocytes # (0.0-1.3) K/mcL Eosinophils # (0.0-0.6) K/mcL Basophils # (0.0-0.2) K/mcL Sodium (136-145) mEq/L Potassium (3.5-5.1) mEq/L Chloride (98-107) mEq/L Carbon Dioxide (23-29) mEq/L BUN (8-23) mg/dL Creatinine (0.70-1.30) mg/dL Est GFR ( Amer) (> 60) Est GFR (Non-Af Amer) (> 60) BUN/Creatinine Ratio (6-26) Glucose (70-105) mg/dL Calculated Osmolality (280-300) Lactic Acid (0.5-2.2) mmol/L Calcium (8.6-10.3) mg/dL Stool Occult Bld Scrn Positive A (Negative) Blood Type O POSITIVE Antibody Screen NEGATIVE Attestation Statement - Attestation Attestation: I examined this patient and my medical decision-making was reviewed with the SIGNAL MAINTAINER/PA/Advanced Practice Nurse/Resident Physician. I agree with the documented findings, disposition and treatment plan as described except to the extent set forth below. I did see the patient is spoke with him and his and he is breathing comfortably, skin color is good, bright red blood per rectum by complaint but no complaint of lightheadedness, syncope, chest pain, shortness of breath, fever, vomiting. Test results are pending. The patient will be admitted. 0844 I did review the patient's EKG showing atrial fibrillation with rate of 69 without acute ischemic change 0900
[2018-11-03 08:51] LABS: Basophils # 0.1 K/mcL (0.0-0.2); Basophils % 0.7 %; Eosinophils # 0.2 K/mcL (0.0-0.6); Eosinophils % 2.3 %; Hematocrit 41.2 % (37.5-50.1); Hemoglobin 13.3 g/dL (12.9-16.9); Immature Granulocytes % 0.3 % (0-4); Lymphocytes # 1.4 K/mcL (0.6-4.6); Lymphocytes % 20.4 %; Mean Corpuscular HGB Conc 32.3 g/dL (31.6-35.5); Mean Corpuscular Hemoglobin 30.5 pg (28.0-33.3); Mean Corpuscular Volume 94.5 fL (83.0-100.0); Monocytes # 0.6 K/mcL (0.0-1.3); Monocytes % 8.8 %; Neutrophils # 4.6 K/mcL (1.6-8.9); Platelet Count 158 K/mcL (140-400); Red Blood Count 4.36 M/mcL (4.19-5.50); Red Cell Distribution Width 12.5 % (11.5-14.5); Segmented Neutrophils % 67.5 %
[2018-11-03 09:10] LABS: BUN/Creatinine Ratio 18 (6-26); Blood Urea Nitrogen 14 mg/dL (8-23); Calcium 8.7 mg/dL (8.6-10.3); Carbon Dioxide 28 mEq/L (23-29); Chloride 107 mEq/L (98-107); Glucose 106 mg/dL (70-105); Osmolality,Calculated 291 (280-300); Potassium 4.1 mEq/L (3.5-5.1); Sodium 140 mEq/L (136-145); eGFR For Non-African Americans > 60 (> 60)
[2018-11-03] MEDS ORDERED: traMADol 50 MG TABLET PO PRN (11:24)
[2018-11-03] MEDS ORDERED: Ondansetron 4 MG/2 ML VIAL IVP PRN (11:24)
[2018-11-03] MEDS ORDERED: Naloxone 0.4 MG/ML INJ IVP PRN (11:24)
[2018-11-03] MEDS ORDERED: Isovue-370 500 ML BOTTLE IVP ONE (11:31)
[2018-11-03] MEDS ORDERED: *HR* Dextrose 50 % in Water (Syg) 50 ML SYRINGE IVP PRN (11:33)
[2018-11-03] MEDS ORDERED: D5% in Water 1,000 ML IVC PRN (11:33)
[2018-11-03] MEDS ORDERED: Dextrose Gel 15 GM/37.5 ML TUBE PO PRN ×2 (11:33)
[2018-11-03] MEDS ORDERED: Nitroglycerin 0.4 MG TAB.SUBL SL ONE (11:36)
[2018-11-03] MEDS: Insulin LISPRO 300 UNITS/3 ML VIAL SQ SCH ×3 (12:15→23:59)
[2018-11-03] MEDS: D5% in 0.45% NACL 1,000 ML IVC SCH (12:29)
[2018-11-03 12:35] LABS: Basophils % 0.5 %; Eosinophils # 0.1 K/mcL (0.0-0.6); Eosinophils % 1.7 %; Hematocrit 40.2 % (37.5-50.1); Hemoglobin 13.2 g/dL (12.9-16.9); Immature Granulocytes % 0.3 % (0-4); Lymphocytes # 1.4 K/mcL (0.6-4.6); Lymphocytes % 23.3 %; Mean Corpuscular HGB Conc 32.8 g/dL (31.6-35.5); Mean Corpuscular Hemoglobin 31.1 pg (28.0-33.3); Mean Corpuscular Volume 94.6 fL (83.0-100.0); Mean Platelet Volume 9.2 fL (9.4-12.4); Monocytes # 0.5 K/mcL (0.0-1.3); Monocytes % 8.5 %; Neutrophils # 3.9 K/mcL (1.6-8.9); Platelet Count 131 K/mcL (140-400); Red Blood Count 4.25 M/mcL (4.19-5.50); Red Cell Distribution Width 12.7 % (11.5-14.5); Segmented Neutrophils % 65.7 %
[2018-11-03 12:46] LABS: INR 1.2
[2018-11-03 12:49] LABS: Activated Partial Thrombo Time 38.8 Seconds (26.0-36.0)
--- NOTE | 2018-11-03 13:48 | Internal Med History&Physical ---
<RothLonnie - Last Filed: 11/03/18 15:05> Date of Encounter: 11/03/18 Time of Encounter: 13:44 Internal Medicine - H&P: HPI Chief complaint: Red blood per rectum Admitted From: Home Plans for Post Hospital Care: Home History of present illness: Mr. Dowling is a 76 year old male with a past medical history of CAD, TIA, peripheral vascular disease, A. fib not on anticoagulation due to history of severe GI bleed presents with bright red blood per rectum. He reports that at approximately 5:00 this morning he awoke and felt the urge to have a bowel movement. He admitted to mild abdominal pain at the time. He had two bowel movements with tar-colored stool with some bright red blood and decided to come to the emergency room. Admits associated lightheadedness with BMs but no other symptoms. Patient was recently admitted at [facility] for GIB in June 2018 and he reports his symptoms are similar to that time. He reports at that time he underwent EGD and colonoscopy, during which a "vessel in my stomach was repaired". He denies any syncope, dizziness, nausea, vomiting, fever, or chills. Has not been recently ill. Denies any diarrhea, hematochezia, or melena prior to this morning's event. No chest pain, SOB, or cough. Patient reports chronic ASA 325 mg PO daily for CAD, no other anticoagulation. Denies alcohol or smoking tobacco. No recent NSAID use. Per chart review, patient had a [facility] 2016 showing mild three vessel disease and LVEF of 55% and was recommended medical therapy. He also underwent 2 stress tests in [id number] that were negative. Last nuclear stress test 11/15/17 negative for ischemia or infarct, EF 65% Past Med Surg Social Fam HX - Past Medical History Medical history: arthritis, atrial fibrillation, cardiomyopathy, CHF, GERD, GI bleed, hyperlipidemia, hypertension, liver disease Additional medical history: heart cath with some blockage not able to fix, irreg HR, hx of stroke Psychiatric history: no psych history - Past Surgical History Surgical History: cholecystectomy, other - Social History Smoking Status: Former smoker Smokeless Tobacco Status: No Alcohol use: none Drug use: none - Family History Mother Living Status: Hx Family Cardiac Disorders: Yes (previous [place]) Internal Medicine - H&P: Meds RX: Atorvastatin [Lipitor] 10 mg PO HS 01/07/16 [History] RX: Citalopram Hydrobromide [Citalopram HBr] 10 mg PO DAILY 01/07/16 [History] RX: Docusate [Colace] 200 mg PO DAILY 01/07/16 [History] RX: Omeprazole [PriLOSEC] 20 mg PO DAILY 01/07/16 [History] RX: diazePAM [Valium] 5 mg PO 3-4XD 01/07/16 [History] RX: Cyanocobalamin (Vitamin B-12) [Vitamin B-12] 100 mcg PO DAILY 05/28/16 [History] RX: Nitroglycerin 0.4 mg SL Q5MIN PRN 30 Days #1 tab.subl 11/15/17 [Rx] Ferrous Sulfate [Iron] 325 mg PO DAILY 11/03/18 [History] Metoprolol Succinate [Toprol Xl] 25 mg PO DAILY 11/03/18 [History] RX: Aspirin 325 mg PO DAILY 11/03/18 [History] RX: Lisinopril [Zestril] 10 mg PO BID 11/03/18 [History] Allergy/AdvReac Type Severity Reaction Status Date / Time No Known Allergies Allergy Verified 11/03/18 15:05 All Systems PM: A 10-system review of systems was performed and is negative for pertinent findings except as documented above in the HPI. - Constitutional Constitutional: as per HPI - EENT Eyes: as per HPI Ears: as per HPI Nose, mouth and throat: as per HPI - Breasts Breasts: as per HPI - Cardiovascular Cardiovascular ROS IM: as per HPI - Respiratory Respiratory: as per HPI - Gastrointestinal Gastrointestinal: as per HPI - Genitourinary Genitourinary ROS male: as per HPI - Musculoskeletal Musculoskeletal ROS IM: as per HPI - Integumentary Integumentary IM: as per HPI - Neurological Neurological ROS: as per HPI - Psychiatric Psychiatric: as per HPI - Endocrine Endocrine IM: as per HPI - Constitutional Vitals: Temp Pulse Resp BP Pulse Ox 97.4 F L 57 16 146/89 91 11/03/18 11:38 11/03/18 11:38 11/03/18 11:38 11/03/18 11:38 11/03/18 11:38 General appearance: Present: A&O X 3 Exam: As below - Head Head exam: Present: atraumatic, normocephalic - Eye Eye exam: Present: PERRL, conjuntiva pink, sclera anicteric Pupils: Present: PERRL - Neck Neck exam general surgery: Present: supple, trachea midline. Absent: lymphadenopathy - Respiratory Respiratory exam: Present: CTAB. Absent: accessory muscle use, rales, rhonchi, wheezes - Cardiovascular Cardiovascular exam: Absent: diastolic murmur, gallop, rubs, systolic murmur Additional comments: A fib noted. regular rate. - GI/Abdominal GI/Abdominal exam: Present: normal bowel sounds, soft, no peritoneal signs. Absent: distended, tenderness - Extremities Exam Extremities exam: Present: warm, radial pulses palpable and symmetrical. Absent: calf tenderness, cyanotic, pedal edema - Neurological Exam Neurological exam: Present: CN II-XII intact, oriented X3, no focal deficits. Absent: pronater drift, facial droop, speech deficit - Skin Skin exam: Present: dry, intact Internal Med - H&P Results - Labs CBC & Chem 7: 11/03/18 11:52 11/03/18 08:38 Labs: Short CBC 11/03/18 11/03/18 Range/Units 08:38 11:52 WBC 6.8 6.0 (4.3-11.1) K/mcL Hgb 13.3 13.2 (12.9-16.9) g/dL Hct 41.2 40.2 (37.5-50.1) % Plt Count 158 131 L (140-400) K/mcL Neutrophils # 4.6 3.9 (1.6-8.9) K/mcL BMP 11/03/18 08:38 Sodium 140 Potassium 4.1 Chloride 107 Carbon Dioxide 28 BUN 14 Creatinine 0.78 Glucose 106 H Calcium 8.7 - Assessment and Plan (1) Acute GI bleeding Current Visit: Yes Status: Acute Assessment and plan: Mr. Dowling is a 76 year old male with a past medical history of CAD, TIA, peripheral vascular disease, A. fib not on anticoagulation due to history of severe GI bleed presents with bright red blood per rectum. Temperature 97.4, Satting 91% RA CT abdomen/pelvis: no acute hemorrhage, severe diverticulosis without diverticulitis, mild cirrhosis with gastric varices, cardiomegaly. FOBT + Multiple possible etiologies: -PUD, erosive gastropathy, erosive esophagitis, gastric varices, cirrhosis, malignancy, AVMs, diverticular bleed Plan: Patient is on ASA 325mg PO daily. Chronic high dose ASA should be avoided with his history of recurrent GI bleed. Will decrease dose at his discharge. -Obtain medical records from [facility] for patient's previous GIB bleed in June 2018 -hold ASA in the setting of acute GI bleed -NPO, IV access, continue IVFs -obtain repeat am labs: H/H, PT/INR, BMP -Blood type and cross -Surgical consult for EGD/ colonoscopy in the morning. Dr. Macedo aware. Plan for repeat EGD/Colonoscopy in the morning. GI prep tonight. -continue protonix and GI prophylaxis. -Avoid NSAID, anticoagulation for now (2) Atrial fibrillation Current Visit: No Status: Acute Assessment and plan: Stable. Only on ASA at home due to history of GIB. Continue metoprolol 25mg PO daily. Continue to monitor closely Qualifiers: Atrial fibrillation type: chronic Qualified Code(s): I48.2 - Chronic atrial fibrillation (3) CAD (coronary artery disease) Current Visit: No Status: Acute Assessment and plan: Stable and asymptomatic. Continue with home medications lisinopril, metoprolol, atorvastatin. Hold Aspirin for now in the setting of GIB. Qualifiers: Coronary Disease-Associated Artery/Lesion type: [place] artery [place] vs. transplanted heart: [place] heart Associated angina: without angina Qualified Code(s): I25.10 - Atherosclerotic heart disease of [place] coronary artery without angina pectoris (4) Cirrhosis Current Visit: No Status: Acute Assessment and plan: Stable. Last available liver enzymes 01/27/15. Will obtain hepatic panel in the morning. Qualifiers: Hepatic cirrhosis type: unspecified hepatic cirrhosis Ascites presence: without ascites Qualified Code(s): K74.60 - Unspecified cirrhosis of liver (5) DVT prophylaxis Current Visit: No Status: Acute Assessment and plan: SCDs - Time Spent With Patient Total time spent is greater than 50% in coordination of care (as documented) at patient's floor/unit and/or counseling patient: Greater than 35 minutes <Tracy Casiano - Last Filed: 11/03/18 16:02> Date of Encounter: 11/03/18 Internal Medicine - H&P: HPI History of present illness: Mr. Dowling is a 77 year old male All Systems PM: A 10-system review of systems was performed and is negative for pertinent findings except as documented above in the HPI. - Constitutional Vitals: Temp Pulse Resp BP Pulse Ox 97.5 F L 61 18 176/103 96 11/03/18 15:14 11/03/18 15:14 11/03/18 15:14 11/03/18 15:14 11/03/18 15:14 Internal Med - H&P Results - Labs CBC & Chem 7: 11/03/18 11:52 11/03/18 08:38 Labs: Short CBC 11/03/18 11/03/18 Range/Units 08:38 11:52 WBC 6.8 6.0 (4.3-11.1) K/mcL Hgb 13.3 13.2 (12.9-16.9) g/dL Hct 41.2 40.2 (37.5-50.1) % Plt Count 158 131 L (140-400) K/mcL Neutrophils # 4.6 3.9 (1.6-8.9) K/mcL BMP 11/03/18 08:38 Sodium 140 Potassium 4.1 Chloride 107 Carbon Dioxide 28 BUN 14 Creatinine 0.78 Glucose 106 H Calcium 8.7 - Impressions ITS Impressions Abdomen/Pelvis CTA 11/03/18 11:31 IMPRESSION: 1. No evidence of acute hemorrhage within the gastrointestinal tract. 2. Severe diffuse diverticulosis within the colon, without evidence of acute diverticulitis. 3. Mildly cirrhotic appearance of the liver, with small gastroesophageal and gastric varices. 4. Moderate enlargement of the prostate, with findings suggestive of chronic bladder outlet obstruction. 5. Mild dilation of the common bile duct is likely related to prior cholecystectomy. 6. Cardiomegaly. D/ / 11/03/2018 13:56:41 Jason Magana MD / carlos a candelario Interpreting Provider: Jason Magana MD - Time Spent With Patient Total time spent is greater than 50% in coordination of care (as documented) at patient's floor/unit and/or counseling patient: - Attending Attestation I examined this patient and my medical decision-making was reviewed with the Resident Physician Dr. Roth. I agree with the documented findings, disposition and treatment plan as described except to the extent set forth below. Mr. Dowling is a 76 year old male with a past medical history of CAD, TIA, peripheral vascular disease, A. fib not on anticoagulation due to history of severe GI bleed pt presented to ER with bright red blood per rectum. He had two bowel movements with tar-colored stool with some bright red blood and decided to come to the emergency room. Patient was recently admitted at [facility] for GIB in June 2018 and he reports his symptoms are similar to that time. He reports at that time he underwent EGD and colonoscopy, during which a "vessel in my stomach was repaired". Patient reports chronic ASA 325 mg PO daily for CAD, no other anticoagulation. No recent NSAID use. Gen: A, A, O x 3 Chest: Diminished BS b/l, No crackles Heart: S1S2+ RRR No murmurs Abd: Soft, mild discomfort in epigastric and gisele umbelical region a/p 1. Acute GI bleed ( bright red blood per rectum ) Place the pt into Tele for observation Clear liquid diet NPO after mid night Surgery consulted for EGD and Colonoscopy in AM will obtain medical records from [facility] Cont holding ASA 325mg continue close monitoring of hemoglobin
--- NOTE | 2018-11-03 14:48 | AcuteCare Surgery Consult Note ---
Date of Encounter: 11/03/18 Time of Encounter: 14:48 Assessment and Plan (1) GI bleed Status: Acute I explained to the patient that I do think it would be appropriate first to consider performing an EGD and colonoscopy. I will ask the nursing staff to obtain records from [facility] and I will start the bowel prep with Dulcolax suppositories today. If he has liquid stool tomorrow then we will proceed with the procedure tomorrow. Both the patient and the patient's agree with the above plan. Qualifiers: GI bleed type/associated pathology: unspecified gastrointestinal hemorrhage type Qualified Code(s): K92.2 - Gastrointestinal hemorrhage, unspecified History of Present Illness Consult date: 11/03/18 Requesting physician: Lonnie Roth History of present illness: The patient is a 77-year-old male with a past medical history significant for CHF, atrial fibrillation (not on anticoagulation) cardiomyopathy, and hyperlipidemia who states that this morning around 5 AM he had the sensation of needing to have a bowel movement and subsequently had to bloody stool/bowel movements. He says that the blood was bright in color. He denied any abdominal pain during this episode and denied any nausea or vomiting. He states normally he does not have any diarrhea or constipation. He had a similar episode of rectal bleeding with the same circumstances in late June/early July of this year. He had an EGD and colonoscopy performed the [facility] and he was told that there was an area in the stomach that was the source of bleeding. I am asked to evaluate the patient regarding his symptoms of rectal bleeding. Past Med Surg Social Fam HX - Past Medical History Medical history: arthritis, atrial fibrillation, cardiomyopathy, CHF, GERD, GI bleed, hyperlipidemia, hypertension, liver disease Additional medical history: heart cath with some blockage not able to fix, irreg HR, hx of stroke Psychiatric history: no psych history - Past Surgical History Surgical History: cholecystectomy, other - Social History Smoking Status: Former smoker Smokeless Tobacco Status: No Alcohol use: none Drug use: none - Family History Mother Living Status: Hx Family Cardiac Disorders: Yes (previous [place]) Medications and Allergies Atorvastatin [Lipitor] 10 mg PO HS 01/07/16 [History] Citalopram Hydrobromide [Citalopram HBr] 10 mg PO DAILY 01/07/16 [History] Docusate [Colace] 200 mg PO DAILY 01/07/16 [History] Omeprazole [PriLOSEC] 20 mg PO DAILY 01/07/16 [History] diazePAM [Valium] 5 mg PO 3-4XD 01/07/16 [History] Cyanocobalamin (Vitamin B-12) [Vitamin B-12] 100 mcg PO DAILY 05/28/16 [History] Nitroglycerin 0.4 mg SL Q5MIN PRN 30 Days #1 tab.subl 11/15/17 [Rx] Aspirin 325 mg PO DAILY 11/03/18 [History] Ferrous Sulfate [Iron] 325 mg PO DAILY 11/03/18 [History] Lisinopril [Zestril] 10 mg PO BID 11/03/18 [History] Metoprolol Succinate [Toprol Xl] 25 mg PO DAILY 11/03/18 [History] Allergy/AdvReac Type Severity Reaction Status Date / Time No Known Allergies Allergy Verified 11/03/18 15:05 Review of Systems All systems PM: reviewed and no additional remarkable complaints except as stated All systems PM: The remainder of the systems were reviewed and are negative General Surgery Exam Initial Vital Signs Temp Pulse Resp BP Pulse Ox 97.5 F L 70 18 159/94 96 11/03/18 08:04 11/03/18 08:04 11/03/18 08:04 11/03/18 08:04 11/03/18 08:04 - Eyes PERRL, normal ocular movement - Respiratory normal expansion, normal respiratory effort, clear to auscultation - Cardiovascular Cardiovascular exam: Present: NR, irregular rhythm, no murmurs/rubs/gallops - Abdomen Abdomen general surgery: Present: bowel sounds present, soft (These, no masses palpated. No pain to palpation) - Neurologic Present: CN 2-12 grossly intact - Musculoskeletal Present: other (No clubbing cyanosis or edema) - Psychiatric Psychiatric general surgery: Present: A&Ox3, oriented to person, oriented to place, oriented to time Exam Initial Vital Signs Temp Pulse Resp BP Pulse Ox 97.5 F L 70 18 159/94 96 11/03/18 08:04 11/03/18 08:04 11/03/18 08:04 11/03/18 08:04 11/03/18 08:04 Results - Labs 11/04/18 03:26 11/04/18 03:26 Abnormal lab results Plt Count 131 K/mcL (140-400) L 11/03/18 11:52 MPV 9.2 fL (9.4-12.4) L 11/03/18 11:52 PT 13.0 Seconds (9.4-12.1) H 11/03/18 11:52 APTT 38.8 Seconds (26.0-36.0) H 11/03/18 11:52 Glucose 106 mg/dL (70-105) H 11/03/18 08:38 Stool Occult Bld Scrn Positive (Negative) A 11/03/18 09:45 Diabetes panel 11/03/18 Range/Units 08:38 Sodium 140 (136-145) mEq/L Potassium 4.1 (3.5-5.1) mEq/L Chloride 107 (98-107) mEq/L Carbon Dioxide 28 (23-29) mEq/L BUN 14 (8-23) mg/dL Creatinine 0.78 (0.70-1.30) mg/dL Glucose 106 H (70-105) mg/dL Calcium 8.7 (8.6-10.3) mg/dL Calcium panel 11/03/18 Range/Units 08:38 Calcium 8.7 (8.6-10.3) mg/dL Pituitary panel 11/03/18 Range/Units 08:38 Sodium 140 (136-145) mEq/L Potassium 4.1 (3.5-5.1) mEq/L Chloride 107 (98-107) mEq/L Carbon Dioxide 28 (23-29) mEq/L BUN 14 (8-23) mg/dL Creatinine 0.78 (0.70-1.30) mg/dL Glucose 106 H (70-105) mg/dL Calcium 8.7 (8.6-10.3) mg/dL Adrenal panel 11/03/18 Range/Units 08:38 Sodium 140 (136-145) mEq/L Potassium 4.1 (3.5-5.1) mEq/L Chloride 107 (98-107) mEq/L Carbon Dioxide 28 (23-29) mEq/L BUN 14 (8-23) mg/dL Creatinine 0.78 (0.70-1.30) mg/dL Glucose 106 H (70-105) mg/dL Calcium 8.7 (8.6-10.3) mg/dL All other labs normal. Consult Discharge Plan - Plan Instructions: Atrial Fibrillation (DC), Hemorrhoids (DC) Referrals: Tra Padron MD [Primary Care Provider] - (In 1-2 weeks)
[2018-11-03] MEDS ORDERED: Tetracaine/Benzocaine/Butamben 1 SPRAY AEROSOL MM ONE (16:01)
[2018-11-03] MEDS ORDERED: *HR* Promethazine 25 MG/ML VIAL IVP ONE (16:01)
[2018-11-03] MEDS ORDERED: Simethicone 40 MG/0.6 ML MLS IR ONE (16:01)
[2018-11-03] MEDS ORDERED: *HR* Midazolam HCl 5 MG/5 ML VIAL IVP ONE (16:01)
[2018-11-03] MEDS ORDERED: *HR* FentaNYL (PF) 100 MCG/2 ML VIAL IVP ONE (16:01)
--- NOTE | 2018-11-03 16:02 | Pre-Sedation Evaluation ---
Pre-sedation evaluation - Pre-sedation checklist Procedure: [facility] Recent Vitals: Last Vital Signs Temp 97.5 F L 11/03/18 15:14 Pulse 61 11/03/18 15:14 Resp 18 11/03/18 15:14 BP 176/103 11/03/18 15:14 Pulse Ox 96 11/03/18 15:14 H&P (including ROS) documented in medical record: Yes Previous reaction to sedatives/anesthetics: No Dietary Status: NPO after Midnight Airway Assessment: Patient can open mouth completely, TMJ function normal Dentition: dentures removed Possible difficult airway: No ASA Classification *see protocol: CLASS III-Severe systemic disease Plan of Care: Pt appropriate candidate for procedure/moderate/conscious sedation
[2018-11-03] MEDS ORDERED: 0.9 % Sodium Chloride 1,000 ML IVC SCH (16:15)
[2018-11-03] MEDS: Pantoprazole 40 MG VIAL IVP SCH (16:55)
[2018-11-03 19:31] LABS: Basophils % 0.5 %; Eosinophils # 0.1 K/mcL (0.0-0.6); Eosinophils % 2.2 %; Hematocrit 43.4 % (37.5-50.1); Immature Granulocytes % 0.2 % (0-4); Lymphocytes # 1.5 K/mcL (0.6-4.6); Lymphocytes % 22.9 %; Mean Corpuscular HGB Conc 32.3 g/dL (31.6-35.5); Mean Corpuscular Hemoglobin 30.3 pg (28.0-33.3); Mean Corpuscular Volume 93.9 fL (83.0-100.0); Mean Platelet Volume 9.2 fL (9.4-12.4); Monocytes # 0.6 K/mcL (0.0-1.3); Monocytes % 9.9 %; Neutrophils # 4.1 K/mcL (1.6-8.9); Platelet Count 143 K/mcL (140-400); Red Blood Count 4.62 M/mcL (4.19-5.50); Red Cell Distribution Width 12.6 % (11.5-14.5); Segmented Neutrophils % 64.3 %
[2018-11-04] MEDS: D5% in 0.45% NACL 1,000 ML IVC SCH (02:43)
[2018-11-04 03:49] LABS: Hematocrit 40.8 % (37.5-50.1); Hemoglobin 13.5 g/dL (12.9-16.9)
[2018-11-04 03:58] LABS: INR 1.1; Prothrombin Time 12.6 Seconds (9.4-12.1)
[2018-11-04 04:07] LABS: BUN/Creatinine Ratio 14 (6-26); Blood Urea Nitrogen 9 mg/dL (8-23); Calcium 8.7 mg/dL (8.6-10.3); Carbon Dioxide 24 mEq/L (23-29); Chloride 108 mEq/L (98-107); Glucose 110 mg/dL (70-105); Magnesium 1.8 mg/dL (1.6-2.6); Osmolality,Calculated 287 (280-300); Phosphorous 2.6 mg/dL (2.7-4.5); Potassium 3.7 mEq/L (3.5-5.1); Sodium 139 mEq/L (136-145); eGFR For Non-African Americans > 60 (> 60)
[2018-11-04 04:08] LABS: Albumin 3.4 g/dL (3.5-5.7); Albumin/Globulin Ratio 1.4 (1.1-2.2); Bilirubin,Direct 0.2 mg/dL (0.0-0.2); Bilirubin,Indirect 0.5 mg/dL (0.0-1.2); Bilirubin,Total 0.7 mg/dL (0.3-1.0); Globulin 2.5 g/dL (2.4-3.5); Total Protein 5.9 g/dL (6.4-8.9)
[2018-11-04] MEDS: Pantoprazole 40 MG VIAL IVP SCH (06:12)
[2018-11-04] MEDS: Insulin LISPRO 300 UNITS/3 ML VIAL SQ SCH (06:12)
--- NOTE | 2018-11-04 08:49 | Anesthesia Evaluation PreOp ---
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 (long time ago - was drinking at the time) Other Medical History: Hepatic (cirrhosis), Bleeding Anesthesia History: No Prior Anesthetic Complications Alcohol Use: none Drug use: none Medications and Allergies Atorvastatin [Lipitor] 10 mg PO HS 01/07/16 [History] Citalopram Hydrobromide [Citalopram HBr] 10 mg PO DAILY 01/07/16 [History] Docusate [Colace] 200 mg PO DAILY 01/07/16 [History] Omeprazole [PriLOSEC] 20 mg PO DAILY 01/07/16 [History] diazePAM [Valium] 5 mg PO 3-4XD 01/07/16 [History] Cyanocobalamin (Vitamin B-12) [Vitamin B-12] 100 mcg PO DAILY 05/28/16 [History] Nitroglycerin 0.4 mg SL Q5MIN PRN 30 Days #1 tab.subl 11/15/17 [Rx] Aspirin 325 mg PO DAILY 11/03/18 [History] Ferrous Sulfate [Iron] 325 mg PO DAILY 11/03/18 [History] Lisinopril [Zestril] 10 mg PO BID 11/03/18 [History] Metoprolol Succinate [Toprol Xl] 25 mg PO DAILY 11/03/18 [History] Allergy/AdvReac Type Severity Reaction Status Date / Time No Known Allergies Allergy Verified 11/03/18 15:05 - Meds/Allergy Pre-op Review Medications Reviewed: Yes Allergies Reviewed: Yes Beta Blockers on Current Med List: Yes (metoprolol) Anesthesia Results - Labs 11/04/18 03:26 11/04/18 03:26 - Imaging EKG: report reviewed, image reviewed (ATRIAL FIBRILLATION LEFT ANTERIOR FASCICULAR BLOCK MINIMAL ST DEPRESSION) Additional studies: 2015 TTE: Impressions: Normal LV systolic function, LVEF 60-65%. Mild concentric left ventricular hypertrophy. Indeterminate diastolic function due to atrial fibrillation. Mildly dilated right ventricle with normal systolic function. Severely dilated left atrium. Moderate-severely dilated right atrium. Mild aortic regurgitation. Mild tricuspid regurgitation. Borderline mild pulmonary hypertension. Estimated RVSP = 35 mmHg, possibly underestimated on this study. Anesthesia Exam Last Vital Signs Temp 98.1 F 11/04/18 07:10 Pulse 76 11/04/18 07:10 Resp 15 11/04/18 07:10 BP 159/96 11/04/18 07:10 Pulse Ox 94 11/04/18 07:10 Weight: 96 kg NPO (# of Hours): > 8hrs - HEENT Pupil (Motor): Pupils equal, EOMI Mallampati: III Teeth: Edentulous Oral Opening: Less than or equal to 3 - SURVEY FIELD TECHNICIAN LOC: Oriented - Cardiac Rhythm: Regular Murmur: None - Pulmonary Breath Sounds: bilateral Clear Respiratory Effort: Symmetrical Anesthesia Assess/Plan ASA Score: 3 Level of consciousness: Cooperative Anesthetic Plan: MAC Monitoring Plan: Standard Monitors Recovery Plan: PACU
[2018-11-04] MEDS ORDERED: Metoprolol XL (24 HR) Succ 25 MG TAB.ER.24H PO SCH (09:00)
--- NOTE | 2018-11-04 09:00 | AcuteCareSurgery Progress Note ---
Date of Encounter: 11/04/18 Time of Encounter: 09:00 Objective Vital Signs - Last 8 Hours Temp Pulse Resp BP Pulse Ox 11/04/18 08:40 97.9 F 72 18 175/78 97 11/04/18 07:10 98.1 F 76 15 159/96 94 11/04/18 03:44 97.5 F L 67 18 133/84 95 Intake and Output 11/03/18 11/04/18 11/04/18 23:59 07:59 15:59 Intake Total 0 / 0 1000 / 1000 Output Total 100 / 100 0 / 0 Balance -100 / -100 1000 / 1000 Intake: IV Fluids 1000 / 1000 D5% And 0.45% Nacl 1000 Ml Bag 1000 / 1000 1,000 ML @ 75 mls/hr IVC . [id number] [facility] Rx#:[id number] Oral 0 / 0 0 / 0 Output: Urine 100 / 100 0 / 0 Other: Stool Size Moderate Small Stool Consistency liquid liquid Stool Color Dark Red Blood Brown # Voids 4 # Bowel Movements 1 1 Weight 96 kg Blood Glucose* 110 95 Patient Weight 11/04/18 23:59 Weight 96 kg - Labs 11/04/18 03:26 11/04/18 03:26 Diabetes panel 11/03/18 11/04/18 11/04/18 Range/Units 08:38 03:26 03:26 Sodium 140 139 (136-145) mEq/L Potassium 4.1 3.7 (3.5-5.1) mEq/L Chloride 107 108 H (98-107) mEq/L Carbon Dioxide 28 24 (23-29) mEq/L BUN 14 9 (8-23) mg/dL Creatinine 0.78 0.63 L (0.70-1.30) mg/dL Glucose 106 H 110 H (70-105) mg/dL Calcium 8.7 8.7 (8.6-10.3) mg/dL AST 23 (13-39) Units/L ALT 9 (7-52) Units/L Alkaline Phosphatase 79 (34-104) Units/L Albumin 3.4 L (3.5-5.7) g/dL Calcium panel 11/03/18 11/04/18 11/04/18 Range/Units 08:38 03:26 03:26 Calcium 8.7 8.7 (8.6-10.3) mg/dL Phosphorus 2.6 L (2.7-4.5) mg/dL Albumin 3.4 L (3.5-5.7) g/dL Pituitary panel 11/03/18 11/04/18 Range/Units 08:38 03:26 Sodium 140 139 (136-145) mEq/L Potassium 4.1 3.7 (3.5-5.1) mEq/L Chloride 107 108 H (98-107) mEq/L Carbon Dioxide 28 24 (23-29) mEq/L BUN 14 9 (8-23) mg/dL Creatinine 0.78 0.63 L (0.70-1.30) mg/dL Glucose 106 H 110 H (70-105) mg/dL Calcium 8.7 8.7 (8.6-10.3) mg/dL Adrenal panel 11/03/18 11/04/18 11/04/18 Range/Units 08:38 03:26 03:26 Sodium 140 139 (136-145) mEq/L Potassium 4.1 3.7 (3.5-5.1) mEq/L Chloride 107 108 H (98-107) mEq/L Carbon Dioxide 28 24 (23-29) mEq/L BUN 14 9 (8-23) mg/dL Creatinine 0.78 0.63 L (0.70-1.30) mg/dL Glucose 106 H 110 H (70-105) mg/dL Calcium 8.7 8.7 (8.6-10.3) mg/dL Total Bilirubin 0.7 (0.3-1.0) mg/dL AST 23 (13-39) Units/L ALT 9 (7-52) Units/L Alkaline Phosphatase 79 (34-104) Units/L Albumin 3.4 L (3.5-5.7) g/dL Consult Discharge Plan - Plan Referrals: Tra Padron MD [Primary Care Provider] -
[2018-11-04] MEDS ORDERED: Ringers Solution, Lactated 1,000 ML IVC SCH (09:15)
--- NOTE | 2018-11-04 09:29 | Event Note ---
Date of Encounter: 11/04/18 Time of Encounter: 09:28 EGD and colonoscopy performed. EGD showed an irregular Z line and some granular mucosa but no evidence of bleeding or ulcers. Biopsies obtained of the GE junction and stomach. Colonoscopy showed numerous diverticula throughout the entire colon with no evidence of bleeding or clot. Small internal hemorrhoids were also noted with no evidence of bleeding. Pathology pending. Okay to restart diet and discharge once cleared from the primary service. The patient does not require a follow-up to see me in the office (we will call him once the pathology results have returned). We will sign off. Thank you
[2018-11-04] MEDS ORDERED: Propofol 500 MG/50 ML INFUS..BTL ONE (09:34)
[2018-11-04] MEDS ORDERED: Lidocaine -MPF 2% 2 ML VIAL ONE (09:35)
[2018-11-04] MEDS ORDERED: Dextrose Gel 15 GM/37.5 ML TUBE PO PRN ×2 (09:55)
[2018-11-04] MEDS ORDERED: traMADol 50 MG TABLET PO PRN (09:55)
[2018-11-04] MEDS ORDERED: *HR* Dextrose 50 % in Water (Syg) 50 ML SYRINGE IVP PRN (09:55)
[2018-11-04] MEDS ORDERED: Naloxone 0.4 MG/ML INJ IVP PRN (09:55)
[2018-11-04] MEDS ORDERED: D5% in 0.45% NACL 1,000 ML IVC SCH (09:55)
[2018-11-04] MEDS ORDERED: D5% in Water 1,000 ML IVC PRN (09:55)
[2018-11-04] MEDS ORDERED: Ondansetron 4 MG/2 ML VIAL IVP PRN (09:55)
--- NOTE | 2018-11-04 11:22 | Discharge Summary ---
- NOTES TO OUTPATIENT PROVIDER Notes to Outpatient Provider: Patient with history of coronary artery disease, TIA, peripheral vascular disease, atrial fibrillation not on anticoagulation due to history of GI bleed was hospitalized here after he presented to the ER with complaints of melena and bright red blood in stools. His hemoglobin was stable but given his history, he was kept nothing by mouth and then underwent EGD and colonoscopy today. Patient was found to have no active bleeding. He did have internal hemorrhoids and diverticulosis. At this time is clinically stable to be discharged home. He is advised to take high fiber diet and stool softeners daily. Orders not resulted at time of discharge: Pending orders 11/04/18 09:14 Surgical Pathology [PTH] Routine Date of Encounter: 11/04/18 Time of Encounter: 11:18 - Discharge Diagnosis (1) Acute GI bleeding Priority: Primary Status: Resolved (2) Atrial fibrillation Priority: Secondary Status: Acute Qualifiers: Atrial fibrillation type: chronic Qualified Code(s): I48.2 - Chronic atrial fibrillation (3) CAD (coronary artery disease) Priority: Secondary Status: Acute Qualifiers: Coronary Disease-Associated Artery/Lesion type: [place] artery [place] vs. transplanted heart: [place] heart Associated angina: without angina Qualified Code(s): I25.10 - Atherosclerotic heart disease of [place] coronary artery without angina pectoris Hospital course: Mr. Dowling is a 77 year old male Patient with history of coronary artery disease, TIA, peripheral vascular disease, atrial fibrillation not on anticoagulation due to history of GI bleed was hospitalized here after he pr esented to the ER with complaints of melena and bright red blood in stools. His hemoglobin was stable but given his history, he was kept nothing by mouth and then underwent EGD and colonoscopy today. Patient was found to have no active bleeding. He did have internal hemorrhoids and diverticulosis. At this time is clinically stable to be discharged home. He is advised to take high fiber diet and stool softeners daily. Surgery office will follow up with him regarding pathology results from his biopsies. Discharge discussed with: patient, family, nurse - Time Spent with Patient Total time spent providing and/or coordinating discharge services: Time spent: Less than 30 minutes (20 min) - Discharge Medications Prescriptions: Continue Citalopram Hydrobromide [Citalopram HBr] 10 mg PO DAILY diazePAM [Valium] 5 mg PO 3-4XD Atorvastatin [Lipitor] 10 mg PO HS Omeprazole [PriLOSEC] 20 mg PO DAILY Docusate [Colace] 200 mg PO DAILY Cyanocobalamin (Vitamin B-12) [Vitamin B-12] 100 mcg PO DAILY Nitroglycerin 0.4 mg SL Q5MIN PRN 30 Days #1 tab.subl PRN Reason: Chest Pain Aspirin 325 mg PO DAILY Ferrous Sulfate [Iron] 325 mg PO DAILY Lisinopril [Zestril] 10 mg PO BID Metoprolol Succinate [Toprol Xl] 25 mg PO DAILY Home Medications: Atorvastatin [Lipitor] 10 mg PO HS 01/07/16 [History] Citalopram Hydrobromide [Citalopram HBr] 10 mg PO DAILY 01/07/16 [History] Docusate [Colace] 200 mg PO DAILY 01/07/16 [History] Omeprazole [PriLOSEC] 20 mg PO DAILY 01/07/16 [History] diazePAM [Valium] 5 mg PO 3-4XD 01/07/16 [History] Cyanocobalamin (Vitamin B-12) [Vitamin B-12] 100 mcg PO DAILY 05/28/16 [History] Nitroglycerin 0.4 mg SL Q5MIN PRN 30 Days #1 tab.subl 11/15/17 [Rx] Aspirin 325 mg PO DAILY 11/03/18 [History] Ferrous Sulfate [Iron] 325 mg PO DAILY 11/03/18 [History] Lisinopril [Zestril] 10 mg PO BID 11/03/18 [History] Metoprolol Succinate [Toprol Xl] 25 mg PO DAILY 11/03/18 [History] Allergies/Adverse Reactions: Allergy/AdvReac Type Severity Reaction Status Date / Time No Known Allergies Allergy Verified 11/03/18 15:05 Date of admission: 11/03/18 10:25 Primary care physician: Tra Padron MD Consults: 11/03/18 10:15 Consult to Gastroenterology [CONS] Stat Consulting Provider: Gastroenterology Mary Kate Reason for Consult: bright red blood per rectum/possible GI bleed/ Call Completed: Yes 11/03/18 11:32 Consult to Surgery [CONS] Routine Consulting Provider: Surgery Mary Kate Surgical Reason for Consult: GI bleeding Call Completed: Yes Discharging clinician: Kasie Dubon Anticipated date of discharge: 11/04/18 - Constitutional Vitals: Temp Pulse Resp BP Pulse Ox 97.4 F L 75 16 157/85 96 11/04/18 09:47 11/04/18 09:47 11/04/18 09:47 11/04/18 09:47 11/04/18 09:47 General appearance: Present: cooperative, A&O X 3, pleasant, answers questions appropriately Exam: . - Respiratory Respiratory exam: Present: CTAB. Absent: accessory muscle use, rales, rhonchi, wheezes - Cardiovascular Cardiovascular exam: Present: RRR, +S1, +S2. Absent: diastolic murmur, gallop, rubs, systolic murmur - Patient Status Disposition: Home, Self-Care Condition: Good Functional capacity at discharge: independent ambulation Overall status at discharge: patient is progressing back to baseline - Discharge Instructions Instructions: Atrial Fibrillation (DC) Follow Up With: Tra Padron MD [Primary Care Provider] - (In 1-2 weeks) - Diet and Activity Activity: increase activity as tolerated Diet: advance to your usual diet, other (Increase fiber in diet)
[2018-11-04 11:25] VITALS: BP 175/90
[2018-11-04] MEDS ORDERED: Insulin LISPRO 300 UNITS/3 ML VIAL SQ SCH (12:00)
[2018-11-04] MEDS ORDERED: Pantoprazole 40 MG VIAL IVP SCH (18:00)
[2018-11-05] MEDS ORDERED: Metoprolol XL (24 HR) Succ 25 MG TAB.ER.24H PO SCH (09:00)
--- NOTE | 2018-11-05 14:31 | Electrocardiograph Report ---
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
== END 2018-11-04 12:24 | disposition home or self-care (01) ==
LOC: EMEROOARM 08:03 → 3ANU 08:03
PROVIDERS: ADMIT Internal Medicine; ATTEND Internal Medicine
PROC: ENDOEBX (2018-11-04 08:40)